=== PATIENT | male | born 1955 | race Caucasian/White ===

== ENCOUNTER 2018-03-01 14:40 | Emergency (ER) | payer SELFPAY ==
[~2018-03-01] VITALS: Ht 180.3 cm; Wt 111.4 kg
[~2018-03-01 14:40] MED LIST: SULF1TAB47 PO; TAB-TAB PO
[2018-03-01 14:47] VITALS: BP 121/85; PULSE 65; RESP 18; TEMP 98.2; O2SAT 96
[2018-03-01 15:37] LABS: AUTOMATED NEUTROPHIL # 4.2 TH/MM3 (1.8-7.7); BASOPHIL % 0.7 % (0.0-2.0); EOSINOPHIL # 0.1 TH/MM3 (0-0.4); EOSINOPHIL % 1.9 % (0.0-4.0); HEMATOCRIT 42.8 % (39.0-51.0); HEMOGLOBIN 14.5 GM/DL (13.0-17.0); LYMPH % 29.3 % (9.0-44.0); MEAN CORPUSCULAR HEMOGLOBIN 31.6 PG (27.0-34.0); MEAN PLATELET VOLUME 8.9 FL (7.0-11.0); MONO % 7.3 % (0.0-8.0); MONOCYTE # 0.5 TH/MM3 (0-0.9); NEUT % 60.8 % (16.0-70.0); PLATELET COUNT 206 TH/MM3 (150-450); RED CELL DISTRIBUTION WIDTH 13.9 % (11.6-17.2); WHITE BLOOD COUNT 6.8 TH/MM3 (4.0-11.0)
--- NOTE | 2018-03-01 15:51 | RADRPT ---
EXAM DATE/TIME: 03/01/2018 15:31 [place] COMPARISON: No previous studies available for comparison. INDICATIONS : Chest pain. MEDICAL HISTORY : None. SURGICAL HISTORY : None. ENCOUNTER: Initial ACUITY: 1 week PAIN SCORE: 6/10 LOCATION: middle chest. FINDINGS: PA and lateral views of the chest demonstrate the lungs to be symmetrically aerated without evidence of mass, infiltrate or effusion. The cardiomediastinal contours are unremarkable. Osseous structure s are intact. CONCLUSION: 1. No acute cardiopulmonary disease. Peret Alaniz MD on March 01, 2018 at 15:48 Board Certified Radiologist. This report was verified electronically.
[2018-03-01 15:52] LABS: INTERNATIONAL NORMALIZED RATIO 1.1 RATIO; PROTHROMBIN TIME - PATIENT 11.3 SEC (9.8-11.6)
[2018-03-01 16:03] LABS: BICARBONATE 23.7 MEQ/L (21.0-32.0); BLOOD UREA NITROGEN 15 MG/DL (7-18); CALCIUM 8.8 MG/DL (8.5-10.1); CHLORIDE 106 MEQ/L (98-107); CREATININE 0.84 MG/DL (0.60-1.30); GLOMERULAR FILTRATION RATE 93 ML/MIN (>89); GLUCOSE,RANDOM 88 MG/DL (74-106); MAGNESIUM 2.1 MG/DL (1.5-2.5); SODIUM (NA) 138 MEQ/L (136-145)
[2018-03-01 16:06] LABS: TROPONIN I LESS THAN 0.02 NG/ML (0.02-0.05)
--- NOTE | 2018-03-01 20:14 | EKG ---
Date Performed: 03/01/2018 Time Performed: 14:55:35 PTAGE: 62 years EKG: Sinus rhythm BORDERLINE LEFT AXIS DEVIATION BORDERLINE ECG NO PREVIOUS TRACING DOCTOR: Drew Barton Interpretating Date/Time 03/01/2018 20:13:38
--- NOTE | 2018-03-01 21:49 | PD ---
Physical Exam Date Seen by Provider: Mar 01, 2018 Time Seen by Provider: 18:10 Narrative 62-year-old male presents to the emergency department reporting left-sided chest pain since Thursday. He states the pain has been worsening. Exacerbating factors deep breathing. He denies any alleviating factors. He denies any cardiac history. Current pain is 6/10. Data Data Last Documented VS Vital Signs Date Time Temp Pulse Resp B/P (MAP) Pulse Ox O2 Delivery O2 Flow Rate FiO2 03/01/18 14:47 98.2 65 18 121/85 (97) 96 Orders Orders Electrocardiogram (03/01/18 14:50) Basic Metabolic Panel (Bmp) (03/01/18 14:50) Ckmb (Isoenzyme) Profile (03/01/18 14:50) Complete Blood Count With Diff (03/01/18 14:50) Magnesium (Mg) (03/01/18 14:50) Prothrombin Time / Inr (Pt) (03/01/18 14:50) Act Partial Throm Time (Ptt) (03/01/18 14:50) Troponin I (03/01/18 14:50) Chest, Pa & Lat (03/01/18 14:50) Labs Laboratory Tests Test 03/01/18 15:00 White Blood Count 6.8 TH/MM3 Red Blood Count 4.60 MIL/MM3 Hemoglobin 14.5 GM/DL Hematocrit 42.8 % Mean Corpuscular Volume 93.0 FL Mean Corpuscular Hemoglobin 31.6 PG Mean Corpuscular Hemoglobin Concent 34.0 % Red Cell Distribution Width 13.9 % Platelet Count 206 TH/MM3 Mean Platelet Volume 8.9 FL Neutrophils (%) (Auto) 60.8 % Lymphocytes (%) (Auto) 29.3 % Monocytes (%) (Auto) 7.3 % Eosinophils (%) (Auto) 1.9 % Basophils (%) (Auto) 0.7 % Neutrophils # (Auto) 4.2 TH/MM3 Lymphocytes # (Auto) 2.0 TH/MM3 Monocytes # (Auto) 0.5 TH/MM3 Eosinophils # (Auto) 0.1 TH/MM3 Basophils # (Auto) 0.0 TH/MM3 CBC Comment DIFF FINAL Differential Comment Prothrombin Time 11.3 SEC Prothromb Time International Ratio 1.1 RATIO Activated Partial Thromboplast Time 26.4 SEC Blood Urea Nitrogen 15 MG/DL Creatinine 0.84 MG/DL Random Glucose 88 MG/DL Calcium Level 8.8 MG/DL Magnesium Level 2.1 MG/DL Sodium Level 138 MEQ/L Potassium Level 4.0 MEQ/L Chloride Level 106 MEQ/L Carbon Dioxide Level 23.7 MEQ/L Anion Gap 8 MEQ/L Estimat Glomerular Filtration Rate 93 ML/MIN Total Creatine Kinase 74 U/L Troponin I LESS THAN 0.02 NG/ML MDM Supervised Visit with CORDELIA: No Narrative Course 62-year-old male presents to the emergency department for evaluation of chest pain. Patient is initially seen in triage. Workup is initiated. Patient left AGAINST MEDICAL ADVICE before he can be moved to medical bed. Diagnosis Primary Impression: Left against medical advice Patient Instructions: General Instructions Departure Forms: Tests/Procedures Disposition: 07 AGAINST MEDICAL ADVICE Barbi Phillips Mar 01, 2018 21:49
== END 2018-03-01 23:49 | disposition left against medical advice (07) ==
LOC: NED 14:40
DX: R07.9 Chest pain, unspecified (principal)
CPT/HCPCS: 71046; 80048; 82550; 83735; 84484; 85025; 85610; 85730; 93005